=== PATIENT | female | born 1980 | race Caucasian/White ===

== ENCOUNTER 2019-05-12 11:19 | Emergency (ER) | payer BC, MEDICAID ==
[2019-05-12] MEDS ORDERED: Morphine 2 MG/ML Syringe IVPUSH ONE (11:51)
[2019-05-12] MEDS ORDERED: Sodium Chloride 0.9% 1,000 ML IV ONE (11:52)
[2019-05-12] MEDS ORDERED: Iopamidol 612 MG/ML 100 ML Bottle IVPUSH ONE (11:54)
[2019-05-12 12:10] LABS: ANION GAP 14.8; CHLORIDE,CL 103 mmol/L (101-111); SODIUM,NA 138 mmol/L (135-145)
[2019-05-12] MEDS ORDERED: HYDROmorphone 1 MG/ML Syringe IVPUSH ONE (14:28)
--- NOTE | 2019-05-12 14:33 | EDM.PDOC ---
ED HPI GENERAL MEDICAL PROBLEM - General Chief Complaint: Abdominal Pain Stated Complaint: APPEDICITIS? Time Seen by Provider: 05/12/19 11:45 Source of Information: Reports: Patient History Limitations: Reports: No Limitations - History of Present Illness INITIAL COMMENTS - FREE TEXT/NARRATIVE: This 38 yo female patient reports to the ED with lower abdominal pain that started 1 hour prior to her arrival in the ED. The patient reports she has not had any other similar symptoms in the past. The patient reports she has had a tubal, but does have an IUD due to irregular menstrual cycles. The patient has not taken anything for her current symptoms. Onset: Today Onset Date: 05/12/19 Onset Time: 10:30 Duration: Constant Location: Reports: Abdomen Quality: Reports: Ache, Sharp, Stabbing Severity: Severe Improves with: Reports: None Worsens with: Reports: None Context: Reports: Other Associated Symptoms: Reports: No Other Symptoms Bilateral Lower Abdomen Pain Score (Numeric/FACES): 5 - Related Data Allergies Allergy/AdvReac Type Severity Reaction Status Date / Time No Known Allergies Allergy Verified 05/12/19 11:30 Home Meds: Home Meds Levothyroxine [Synthroid] 50 mcg PO ACBREAKFAST 05/12/19 [History] Simvastatin 20 mg PO DAILY 05/12/19 [History] Past Medical History Cardiovascular History: Reports: High Cholesterol Endocrine/Metabolic History: Reports: Hypothyroidism - Past Surgical History Female Surgical History: Reports: Hysterectomy Other Female Surgeries/Procedures: partial Social & Family History - Family History Family Medical History: Noncontributory - Tobacco Use Smoking Status *Q: Never Smoker - Caffeine Use Caffeine Use: Reports: None ED ROS GENERAL - Review of Systems Review Of Systems: Comprehensive ROS is negative, except as noted in HPI. ED EXAM, GI/ABD - Physical Exam Exam: See Below Exam Limited By: No Limitations General Appearance: Alert, WD/WN, Moderate Distress, Obese Eyes: Bilateral: Normal Appearance, EOMI Ears: Normal External Exam, Normal Canal, Hearing Grossly Normal, Normal TMs Nose: Normal Inspection, Normal Mucosa, No Blood Throat/Mouth: Normal Inspection, Normal Lips, Normal Teeth, Normal Gums, Normal Oropharynx, Normal Voice, No Airway Compromise Head: Atraumatic, Normocephalic Neck: Normal Inspection, Supple, Non-Tender, Full Range of Motion Respiratory/Chest: No Respiratory Distress, Lungs Clear, Normal Breath Sounds, No Accessory Muscle Use, Chest Non-Tender Cardiovascular: Normal Peripheral Pulses, Regular Rate, Rhythm, No Edema, No Gallop, No JVD, No Murmur, No Rub GI/Abdominal Exam: Normal Bowel Sounds, Guarding, Rebound, Tender (diffuse), Other (Positive psoas) (Female) Exam: Deferred Rectal (Female) Exam: Deferred Back Exam: Normal Inspection Extremities: Normal Inspection, Normal Range of Motion, Non-Tender, Normal Capillary Refill, No Pedal Edema Neurological: Alert, Oriented, CN II-XII Intact, Normal Cognition, Normal Gait, Normal Reflexes, No Motor/Sensory Deficits Psychiatric: Normal Affect, Normal Mood Skin Exam: Warm, Dry, Intact, Normal Color, No Rash Lymphatic: No Adenopathy Course - Vital Signs Last Recorded V/S: Last Vital Signs Temp 37.0 C 05/12/19 15:06 Pulse 84 05/12/19 15:06 Resp 18 05/12/19 15:06 BP 119/73 05/12/19 15:06 Pulse Ox 96 05/12/19 15:06 - Orders/Labs/Meds Orders: Active Orders 24 hr Category Date Time Status Pelvis Non OB Ltd [US] Urgent Exams 05/12/19 15:18 Ordered CHLAMYDIA AND GONORRHEA BY [facility] Urgent Lab 05/12/19 15:18 Ordered Sodium Chloride 0.9% [Normal Saline] 1,000 ml Med 05/12/19 11:52 Active IV .BOLUS Medication Orders Sodium Chloride (Normal Saline) 1,000 mls @ 125 mls/hr IV .BOLUS ONE Stop: 05/12/19 19:51 Last Admin: 05/12/19 12:07 Dose: 125 mls/hr Labs: Laboratory Tests 05/12/19 05/12/19 05/12/19 Range/Units 11:40 11:40 12:29 WBC 11.1 H (5.0-10.0) 10^3/uL RBC 5.09 (4.2-5.4) 10^6/uL Hgb 14.8 (12.0-16.0) g/dL Hct 43.1 (37.0-47.0) % MCV 84.7 (80-100) fL MCH 29.1 (27.0-34.0) pg MCHC 34.3 (33.0-35.0) g/dL Plt Count 271 (150-450) 10^3/uL Neut % (Auto) 61.9 (42.2-75.2) % Lymph % (Auto) 28.3 (20.5-50.1) % [place] % (Auto) 5.1 (2-8) % Eos % (Auto) 4.1 H (1.0-3.0) % Baso % (Auto) 0.6 (0.0-1.0) % Sodium 138 (135-145) mmol/L Potassium 3.8 (3.6-5.0) mmol/L Chloride 103 (101-111) mmol/L Carbon Dioxide 24.0 (21.0-31.0) mmol/L Anion Gap 14.8 BUN 13 (7-18) mg/dL Creatinine 0.7 (0.6-1.3) mg/dL Est Cr Clr Drug Dosing 116.11 mL/min Estimated GFR (MDRD) > 60 BUN/Creatinine Ratio 18.57 Glucose 118 H (74-105) mg/dL Calcium 9.1 (8.4-10.2) mg/dl Total Bilirubin 0.6 (0.2-1.0) mg/dL AST 39 (10-42) IU/L ALT 43 (10-60) IU/L Alkaline Phosphatase 63 (42-121) IU/L Total Protein 7.7 (6.7-8.2) g/dl Albumin 4.4 (3.2-5.5) g/dl Globulin 3.3 Albumin/Globulin Ratio 1.33 Urine Color Yellow (YELLOW) Urine Appearance Slightly cloudy (CLEAR) Urine pH 5.5 (5.0-9.0) Ur Specific [place] 1.010 (1.005-1.030) Urine Protein Negative (NEGATIVE) Urine Glucose (UA) Negative (NEGATIVE) Urine Ketones Negative (NEGATIVE) Urine Occult Blood Negative (NEGATIVE) Urine Nitrite Negative (NEGATIVE) Urine Bilirubin Negative (NEGATIVE) Urine Urobilinogen 0.2 (0.2-1.0) mg/dL Ur Leukocyte Esterase Negative (NEGATIVE) Meds: Medications Generic Name Dose Route Start Last Admin Trade Name Freq PRN Reason Stop Dose Admin Sodium Chloride 1,000 mls @ 125 mls/hr 05/12/19 11:52 05/12/19 12:07 Normal Saline IV 05/12/19 19:51 125 mls/hr .BOLUS ONE Administration Discontinued Medications Generic Name Dose Route Start Last Admin Trade Name Abdiel PRN Reason Stop Dose Admin Hydromorphone HCl 0.5 mg 05/12/19 14:28 05/12/19 14:54 Dilaudid IVPUSH 05/12/19 14:29 0.5 mg ONETIME ONE Administration Iopamidol 100 ml 05/12/19 11:54 05/12/19 12:22 Isovue-300 (61%) IVPUSH 05/12/19 11:55 100 ml ONETIME ONE Administration Morphine Sulfate 2 mg 05/12/19 11:51 05/12/19 12:07 Morphine IVPUSH 05/12/19 11:52 2 mg ONETIME ONE Administration Ondansetron HCl 4 mg 05/12/19 14:58 05/12/19 15:01 Zofran IV 05/12/19 14:59 4 mg ONETIME ONE Administration Ondansetron HCl Confirm 05/12/19 15:00 Zofran Administered 05/12/19 15:01 Dose 4 mg .ROUTE .STK-MED ONE Departure - Departure Time of Disposition: 16:15 Disposition: Home, Self-Care 01 Condition: Fair Clinical Impression: Abdominal pain Qualifiers: Abdominal location: right lower quadrant Qualified Code(s): R10.31 - Right lower quadrant pain - Discharge Information *PRESCRIPTION DRUG MONITORING PROGRAM REVIEWED*: Not Applicable *COPY OF PRESCRIPTION DRUG MONITORING REPORT IN PATIENT MAHENDRA: Not Applicable Instructions: Abdominal Pain, Adult, [id number] Forms: ED Department Discharge Care Plan Goals: The patient was advised of the examination, lab, CT and ultrasound results during the visit. The patient was given IV morphine and IV dilaudid while in the ED. The patient was discharged with a script for [place]ph[place] () #8 to take 1 by mouth every 6 hours as needed for pain. If the patient has any additional symptoms or concerns, the patient should either return to the emergency department or visit her primary care facility. Sepsis Event Note - Evaluation Sepsis Screening Result: No Definite Risk - Focused Exam Vital Signs: Vital Signs Temp Pulse Resp BP Pulse Ox 05/12/19 15:06 37.0 C 84 18 119/73 96 05/12/19 11:34 36.8 C 98 12 130/80 99 Date Exam was Performed: 05/12/19 Time Exam was Performed: 16:15 - My Orders Last 24 Hours: My Active Orders 05/12/19 11:52 Sodium Chloride 0.9% [Normal Saline] 1,000 ml IV .BOLUS 05/12/19 15:18 Pelvis Non OB Ltd [US] Urgent CHLAMYDIA AND GONORRHEA BY [facility] Urgent - Assessment/Plan Last 24 Hours: My Active Orders 05/12/19 11:52 Sodium Chloride 0.9% [Normal Saline] 1,000 ml IV .BOLUS 05/12/19 15:18 Pelvis Non OB Ltd [US] Urgent CHLAMYDIA AND GONORRHEA BY [facility] Urgent
[2019-05-12] MEDS ORDERED: Ondansetron 4 MG/2 ML SDV IV ONE (14:58)
[2019-05-12] MEDS ORDERED: Ondansetron 4 MG/2 ML SDV ONE (15:00)
== END 2019-05-12 16:30 | disposition home or self-care (01) ==
LOC: DL.ED 11:19
DX: R10.31 Right lower quadrant pain (principal); E78.00 Pure hypercholesterolemia, unspecified; E03.9 Hypothyroidism, unspecified; Z79.899 Other long term (current) drug therapy; Z79.890 Hormone replacement therapy
CPT/HCPCS: 36415; 74177; 76857; 80053; 81003; 85025; 87491; 87591; 96361; 96374; 96375; 99284; J1170; J2270; J2405; J7030; Q9967